=== PATIENT | male | born 1940 | race Caucasian/White ===

== ENCOUNTER → 2018-01-13 11:32 | Outpatient (CLI) | payer OTHER, SELFPAY ==
[2018-01-13 11:47] LABS: Add Manual Diff / Slide Review NO; Basophils Percent Auto 1.3 % (0-2); Eosinophils Percent Auto 2.7 % (2-4); Hematocrit 40.5 % (41-53); Lymphocytes Percent Auto 8.6 % (25-40); Mean Corpuscular HGB Conc 34.7 % (30-36); Mean Corpuscular Hemoglobin 31.9 PG (26-34); Monocytes Percent Auto 12.1 % (3-14); Neutrophils Absolute Auto 2900 /uL (3000-5900); Neutrophils Percent Auto 75.3 % (50-75); Platelet Count 59 X10^3/uL (150-400); Red Cell Distribution Width 13.8 % (11.6-14.8); White Blood Cell Count 3.9 X10^3/uL (4.5-11.0)
[2018-01-13 11:59] LABS: Alanine Aminotransferase 43 IU/L (21-72); Albumin 4.1 g/dL (3.5-5.0); Albumin Globulin Ratio 1.6 (1.0-2.8); Alkaline Phosphatase 77 U/L (38-126); Aspartate Aminotransferase 35 IU/L (17-59); Bilirubin Total 0.9 mg/dL (0.2-1.3); Blood Urea Nitrogen 27 mg/dL (9-20); Calcium 9.2 mg/dL (8.4-10.2); Carbon Dioxide 33 mmol/L (22-32); Chloride 99 mmol/L (98-107); Estimated Glomerular Filt Rate > 60.0 mL/min (>60); Globulin 2.6 g/dL (1.7-4.1); Glucose 101 mg/dL (80-110); HEMOLYSIS < 15 (0-50); Lactate Dehydrogenase 510 U/L (313-618); Potassium 4.2 mmol/L (3.4-5.1); Sodium 139 mmol/L (137-145); Total Protein 6.7 g/dL (6.3-8.2)
== END ==
PROVIDERS: PCP Internal Medicine; Visit Provider Nurse Practitioner Gerontology
DX: C82.90 Follicular lymphoma, unspecified, unspecified site (principal)
CPT/HCPCS: 36415; 80053; 83615; 85025

== ENCOUNTER → 2018-07-15 11:07 | Outpatient (CLI) | payer OTHER, SELFPAY ==
[2018-07-15 11:23] LABS: Add Manual Diff / Slide Review NO; Basophils Percent Auto 1.4 % (0-2); Eosinophils Percent Auto 4.6 % (2-4); Hematocrit 41.6 % (41-53); Hemoglobin 13.9 g/dL (13.5-17.5); Lymphocytes Percent Auto 7.3 % (25-40); Mean Corpuscular HGB Conc 33.3 % (30-36); Mean Corpuscular Hemoglobin 31.3 PG (26-34); Monocytes Percent Auto 12.2 % (3-14); Neutrophils Absolute Auto 3600 /uL (3000-5900); Neutrophils Percent Auto 74.5 % (50-75); Platelet Count 62 X10^3/uL (150-400); Red Blood Cell Count 4.43 X10^6/uL (4.5-5.9); Red Cell Distribution Width 13.3 % (11.6-14.8); White Blood Cell Count 4.8 X10^3/uL (4.5-11.0)
[2018-07-15 11:35] LABS: Alanine Aminotransferase 39 IU/L (21-72); Albumin Globulin Ratio 1.4 (1.0-2.8); Alkaline Phosphatase 72 U/L (38-126); Aspartate Aminotransferase 32 IU/L (17-59); BUN Creatinine Ratio 36.7 (6-22); Bilirubin Total 0.9 mg/dL (0.2-1.3); Blood Urea Nitrogen 33 mg/dL (9-20); Carbon Dioxide 31 mmol/L (22-32); Chloride 103 mmol/L (98-107); Estimated Glomerular Filt Rate > 60.0 mL/min (>60); Globulin 2.8 g/dL (1.7-4.1); Glucose 121 mg/dL (80-110); HEMOLYSIS < 15 (0-50); Lactate Dehydrogenase 554 U/L (313-618); Potassium 3.8 mmol/L (3.4-5.1); Sodium 144 mmol/L (137-145); Total Protein 6.8 g/dL (6.3-8.2)
== END ==
PROVIDERS: PCP Internal Medicine; Visit Provider Nurse Practitioner Gerontology
DX: C82.90 Follicular lymphoma, unspecified, unspecified site (principal)
CPT/HCPCS: 36415; 80053; 83615; 85025

== ENCOUNTER → 2018-10-03 14:29 | Outpatient (CLI) | payer OTHER, SELFPAY ==
--- NOTE | 2018-10-03 | DI.RAD.S_ITS ---
PROCEDURE: XR ABDOMEN 1V INDICATIONS: KIDNEY STONE TECHNIQUE: One view of the abdomen acquired. COMPARISON: [facility], CT, CHEST/ABD/PEL WITH CONTRAST, 10/12/2015, 10:52. [facility], CT, CHEST/ABD/PEL WITH CONTRAST, 12/24/2016, 10:51. [facility], CR, KUB XRAY (1 VIEW ABDOMEN), 01/28/2017, 14:13. [facility], CR, XR ABDOMEN 1 VIEW, 04/15/2018, 12:19. FINDINGS: Surgical changes and devices: Machado rods, dynamic hip screws at the left hip.. Bowel: Bowel gas pattern is free of evidence of intestinal obstruction or perforation but there is colonic obstipation with stool crossing in prominence over the expected region of the right kidney where prior lower third renal collecting system calculi had been documented by CT scanning 12/24/16. Soft tissues: No suspicious abdominal calcifications. Visualized solid organ contours appear normal in size. Left lateral pelvic sidewall phlebolith again noted. Bones: No suspicious bony lesions. IMPRESSION: No definite urinary tract stone found but as discussed above there is prominent stool overlying the right kidney exactly in the area of prior documented lower third renal collecting system calculi seen by CT scanning in December of 2016. Dictated by: Karthik Rivero M.D. on 10/03/2018 at 15:42 Approved by: Karthik Rivero M.D. on 10/03/2018 at 15:45
== END ==
PROVIDERS: PCP Internal Medicine; Visit Provider Urology
DX: N20.0 Calculus of kidney (principal); K59.00 Constipation, unspecified
CPT/HCPCS: 74018

== ENCOUNTER → 2018-12-26 13:17 | Outpatient (CLI) | payer OTHER, SELFPAY ==
[2018-12-26 14:32] LABS: Add Manual Diff / Slide Review NO; Basophils Absolute Auto 0 /uL (0-100); Basophils Percent Auto 1.1 % (0-2); Eosinophils Absolute Auto 100 /uL (0-450); Eosinophils Percent Auto 2.9 % (2-4); Hematocrit 39.6 % (41-53); Hemoglobin 13.6 g/dL (13.5-17.5); Lymphocytes Absolute Auto 400 /uL (1100-4500); Lymphocytes Percent Auto 8.6 % (25-40); Mean Corpuscular HGB Conc 34.5 % (30-36); Mean Corpuscular Hemoglobin 32.3 PG (26-34); Mean Corpuscular Volume 93.7 fL (80-100); Monocytes Absolute Auto 600 /uL (0-900); Monocytes Percent Auto 13.9 % (3-14); Neutrophils Absolute Auto 3300 /uL (1500-7000); Neutrophils Percent Auto 73.5 % (50-75); Platelet Count 67 X10^3/uL (150-400); Red Blood Cell Count 4.23 X10^6/uL (4.5-5.9); White Blood Cell Count 4.5 X10^3/uL (4.5-11.0)
[2018-12-26 14:42] LABS: BUN Creatinine Ratio 28.9 (6-22); Blood Urea Nitrogen 26 mg/dL (9-20); Estimated Glomerular Filt Rate > 60.0 mL/min (>60)
[2018-12-26 14:44] LABS: Alanine Aminotransferase 40 IU/L (21-72); Albumin 4.2 g/dL (3.5-5.0); Albumin Globulin Ratio 1.5 (1.0-2.8); Alkaline Phosphatase 79 U/L (38-126); Aspartate Aminotransferase 36 IU/L (17-59); BUN Creatinine Ratio 28.9 (6-22); Bilirubin Total 0.9 mg/dL (0.2-1.3); Blood Urea Nitrogen 26 mg/dL (9-20); Calcium 9.6 mg/dL (8.4-10.2); Carbon Dioxide 33 mmol/L (22-32); Chloride 99 mmol/L (98-107); Estimated Glomerular Filt Rate > 60.0 mL/min (>60); Globulin 2.8 g/dL (1.7-4.1); Glucose 98 mg/dL (80-110); HEMOLYSIS < 15 (0-50); Lactate Dehydrogenase 562 U/L (313-618); Potassium 4.5 mmol/L (3.4-5.1); Sodium 138 mmol/L (137-145)
== END ==
PROVIDERS: Internal Medicine Hematology & Oncology; PCP Internal Medicine; Visit Provider Internal Medicine
DX: M81.8 Other osteoporosis without current pathological fracture (principal); C82.90 Follicular lymphoma, unspecified, unspecified site
CPT/HCPCS: 36415; 80053; 82565; 83615; 84520; 85025

== ENCOUNTER → 2019-08-13 09:42 | Outpatient (CLI) | payer OTHER, SELFPAY ==
--- NOTE | 2019-08-13 | DI.RAD.S_ITS ---
PROCEDURE: XR ABDOMEN 1V INDICATIONS: renal calculus TECHNIQUE: One view of the abdomen acquired. COMPARISON: [facility], CR, XR ABDOMEN 1V, 10/03/2018, 14:32. FINDINGS: Surgical changes and devices: A coil is again seen to the left of L3 vertebral body. Fixation hardware in thoracic lumbar spine is seen. Post surgical changes also noted in left femoral neck and proximal shaft. Bowel: Fecal stasis throughout the colon is seen. No gross free air. Soft tissues: No suspicious abdominal calcifications. Multiple calcifications are seen in lower pelvis likely represent phleboliths. Visualized solid organ contours appear normal in size. Bones: No suspicious bony lesions. IMPRESSION: No definite renal stone is seen. No obvious ureteral stone is noted. Likely phleboliths in lower pelvis. Constipation. Dictated by: Candido Renteria M.D. on 08/13/2019 at 10:37 Approved by: Candido Renteria M.D. on 08/13/2019 at 10:38
== END ==
PROVIDERS: PCP Internal Medicine; Visit Provider Urology
DX: N20.0 Calculus of kidney (principal); K59.00 Constipation, unspecified
CPT/HCPCS: 74018

== ENCOUNTER → 2019-08-21 14:13 | Outpatient (CLI) | payer OTHER, SELFPAY | PROVIDERS: PCP Internal Medicine; Visit Provider Internal Medicine | DX: M81.0 Age-related osteoporosis without current pathological fracture (principal) | CPT/HCPCS: 77080 ==

== ENCOUNTER → 2019-10-19 12:01 | Outpatient (CLI) | payer OTHER, SELFPAY ==
[2019-10-19 12:28] LABS: Add Manual Diff / Slide Review NO; Basophils Absolute Auto 100 /uL (0-100); Basophils Percent Auto 1.5 % (0-2); Eosinophils Absolute Auto 200 /uL (0-450); Eosinophils Percent Auto 3.6 % (2-4); Hematocrit 40.1 % (41-53); Hemoglobin 13.7 g/dL (13.5-17.5); Lymphocytes Absolute Auto 500 /uL (1100-4500); Lymphocytes Percent Auto 10.6 % (25-40); Mean Corpuscular HGB Conc 34.1 % (30-36); Mean Corpuscular Hemoglobin 32.3 PG (26-34); Mean Corpuscular Volume 94.7 fL (80-100); Monocytes Absolute Auto 600 /uL (0-900); Monocytes Percent Auto 13.5 % (3-14); Neutrophils Absolute Auto 3400 /uL (1500-7000); Neutrophils Percent Auto 70.8 % (50-75); Platelet Count 53 X10^3/uL (150-400); Red Blood Cell Count 4.24 X10^6/uL (4.5-5.9); White Blood Cell Count 4.8 X10^3/uL (4.5-11.0)
[2019-10-19 12:39] LABS: Alanine Aminotransferase 25 IU/L (<50); Albumin Globulin Ratio 1.4 (1.0-2.8); Alkaline Phosphatase 72 U/L (38-126); Aspartate Aminotransferase 37 IU/L (17-59); Bilirubin Total 0.8 mg/dL (0.2-1.3); Blood Urea Nitrogen 27 mg/dL (9-20); Calcium 9.6 mg/dL (8.4-10.2); Carbon Dioxide 32 mmol/L (22-32); Chloride 102 mmol/L (98-107); Estimated Glomerular Filt Rate > 60.0 mL/min (>60); Globulin 2.9 g/dL (1.7-4.1); Glucose 85 mg/dL (80-110); HEMOLYSIS 20 (0-50); Lactate Dehydrogenase 633 U/L (313-618); Potassium 4.3 mmol/L (3.4-5.1); Sodium 139 mmol/L (137-145); Total Protein 6.9 g/dL (6.3-8.2)
== END ==
PROVIDERS: PCP Internal Medicine; Referring Provider Internal Medicine Hematology & Oncology; Visit Provider Internal Medicine Hematology & Oncology
DX: C82.90 Follicular lymphoma, unspecified, unspecified site (principal); D69.3 Immune thrombocytopenic purpura
CPT/HCPCS: 36415; 80053; 83615; 85025

== ENCOUNTER → 2020-04-04 14:12 | Outpatient (CLI) | payer OTHER, SELFPAY ==
--- NOTE | 2020-04-04 14:22 | DI.RAD.S_ITS ---
PROCEDURE: XR KUB INDICATIONS: kidney stones TECHNIQUE: One view of the abdomen acquired. COMPARISON: [facility], , KUB XRAY (1 VIEW ABDOMEN), 01/28/2017, 14:13. FINDINGS: Surgical changes and devices: Partially visualized spinal fixation hardware. Bowel: Bowel gas pattern is normal. Suboptimal evaluation due to diffuse stool. 6 mm calcification projects in the region of the right lower pole. Bones: No suspicious bony lesions. Spondylosis and facet arthropathy. Lateral curvature of the spine. IMPRESSION: 6 mm calcification projecting in the right abdomen, possibly nephrolithiasis. Suboptimal evaluation due to large amount of stool present Dictated by: Praneeth Villavicencio M.D. on 04/04/2020 at 16:55 Approved by: Praneeth Villavicencio M.D. on 04/04/2020 at 16:57
== END ==
PROVIDERS: PCP Internal Medicine; Referring Provider Specialist; Visit Provider Specialist
DX: N20.0 Calculus of kidney (principal)
CPT/HCPCS: 74018

== ENCOUNTER → 2020-06-14 15:40 | Outpatient (CLI) | payer OTHER, SELFPAY ==
--- NOTE | 2020-06-14 15:42 | DI.CT.S_ITS ---
PROCEDURE: CT KIDNEY URETER BLADDER (KUB) INDICATIONS: kidney stones TECHNIQUE: Noncontrast 5 mm thick sections acquired from the diaphragms to the symphysis. 5 mm thick coronal and sagittal reformats were then performed. For radiation dose reduction, the following was used: automated exposure control, adjustment of mA and/or kV according to patient size. COMPARISON: [facility], CT, CHEST/ABD/PEL WITH CONTRAST, 12/24/2016, 10:51. FINDINGS: Image quality: Excellent. Lung bases: Right basilar scarring is unchanged.. Heart size is normal. Coronary artery disease. Urinary system: Both kidneys are normal in size. There are 2 adjacent calculi within the right inferior pole kidney, measuring 4 mm each. No left nephrolithiasis. No hydronephrosis or perinephric fat stranding. Both ureters appear non-dilated throughout their expected courses. Bladder wall thickness is normal; no calcified bladder stones. Other solid organs: Liver is normal in size. Gallbladder is contracted . Pancreas is normal in contours. Spleen is normal in size. No adrenal nodules. Peritoneum and bowel: Unenhanced bowel loops demonstrate normal wall thickness and caliber. No free fluid or air. Nodes and vessels: No retroperitoneal or mesenteric adenopathy by size criteria. There is mild ectasia of the infrarenal abdominal aorta measuring 25 mm short axis. Abdominal wall: No ventral hernias. Pelvis: No free pelvic fluid. No inguinal hernias or adenopathy. Bones: No suspicious bony lesions. Left hip ORIF. No vertebral body compression fractures. IMPRESSION: 1. Nonobstructing right renal calculi. No evidence of left renal calculi. 2. No evidence of urinary tract obstruction. 3. Right basilar scarring. 4. Coronary artery disease. Dictated by: Tana Spencer M.D. on 06/14/2020 at 16:41 Approved by: Tana Spencer M.D. on 06/14/2020 at 16:44
[2020-06-14 17:26] LABS: Prostate Specific Antigen 6.06 ng/mL (0.10-4.00)
== END ==
PROVIDERS: PCP Internal Medicine; Referring Provider Specialist; Visit Provider Specialist
DX: N20.0 Calculus of kidney (principal); N40.1 Benign prostatic hyperplasia with lower urinary tract symptoms; N13.8 Other obstructive and reflux uropathy; J98.4 Other disorders of lung; I25.10 Atherosclerotic heart disease of native coronary artery without angina pectoris
CPT/HCPCS: 36415; 74176; 84153

== ENCOUNTER → 2020-07-25 15:46 | Outpatient (CLI) | payer OTHER, SELFPAY ==
[2020-07-25 17:22] LABS: Chloride 100 mmol/L (98-107); HEMOLYSIS < 15 (0-50)
[2020-07-25 17:23] LABS: Alanine Aminotransferase 24 IU/L (<50); Albumin 3.8 g/dL (3.5-5.0); Albumin Globulin Ratio 1.2 (1.0-2.8); Alkaline Phosphatase 78 U/L (38-126); Aspartate Aminotransferase 36 IU/L (17-59); BUN Creatinine Ratio 28.8 (6-22); Bilirubin Total 0.8 mg/dL (0.2-1.3); Blood Urea Nitrogen 30 mg/dL (9-20); Calcium 9.2 mg/dL (8.4-10.2); Carbon Dioxide 36 mmol/L (22-32); Estimated Glomerular Filt Rate > 60.0 mL/min (>60); Globulin 3.1 g/dL (1.7-4.1); Glucose 79 mg/dL (80-110); Potassium 3.9 mmol/L (3.4-5.1); Sodium 137 mmol/L (137-145); Total Protein 6.9 g/dL (6.3-8.2)
== END ==
PROVIDERS: PCP Internal Medicine; Referring Provider Specialist; Visit Provider Specialist
DX: R82.992 Hyperoxaluria (principal); R82.994 Hypercalciuria
CPT/HCPCS: 36415; 80053

== ENCOUNTER → 2020-11-02 15:41 | Outpatient (CLI) | payer OTHER, SELFPAY ==
[2020-11-02 16:06] LABS: Add Manual Diff / Slide Review NO; Basophils Absolute Auto 100 /uL (0-100); Basophils Percent Auto 1.5 % (0-2); Eosinophils Absolute Auto 200 /uL (0-450); Eosinophils Percent Auto 4.7 % (2-4); Hematocrit 34.8 % (41-53); Lymphocytes Absolute Auto 400 /uL (1100-4500); Lymphocytes Percent Auto 8.7 % (25-40); Mean Corpuscular HGB Conc 34.5 % (30-36); Mean Corpuscular Hemoglobin 31.8 PG (26-34); Mean Corpuscular Volume 92.1 fL (80-100); Monocytes Absolute Auto 600 /uL (0-900); Neutrophils Absolute Auto 3600 /uL (1500-7000); Neutrophils Percent Auto 73.1 % (50-75); Platelet Count 61 X10^3/uL (150-400); Red Blood Cell Count 3.77 X10^6/uL (4.5-5.9); Red Cell Distribution Width 13.9 % (11.6-14.8); White Blood Cell Count 4.9 X10^3/uL (4.5-11.0)
[2020-11-02 16:09] LABS: Alanine Aminotransferase 22 IU/L (<50); Albumin 3.9 g/dL (3.5-5.0); Albumin Globulin Ratio 1.5 (1.0-2.8); Alkaline Phosphatase 87 U/L (38-126); Aspartate Aminotransferase 33 IU/L (17-59); BUN Creatinine Ratio 35.1 (6-22); Bilirubin Total 0.4 mg/dL (0.2-1.3); Blood Urea Nitrogen 34 mg/dL (9-20); Calcium 9.2 mg/dL (8.4-10.2); Carbon Dioxide 31 mmol/L (22-32); Chloride 101 mmol/L (98-107); Estimated Glomerular Filt Rate > 60.0 mL/min (>60); Globulin 2.6 g/dL (1.7-4.1); Glucose 89 mg/dL (80-110); HEMOLYSIS < 15 (0-50); Potassium 4.1 mmol/L (3.4-5.1); Sodium 138 mmol/L (137-145); Total Protein 6.5 g/dL (6.3-8.2)
== END ==
PROVIDERS: PCP Internal Medicine; Referring Provider Internal Medicine Hematology & Oncology; Visit Provider Internal Medicine Hematology & Oncology
DX: C82.90 Follicular lymphoma, unspecified, unspecified site (principal); D69.3 Immune thrombocytopenic purpura
CPT/HCPCS: 36415; 80053; 85025

== ENCOUNTER → 2020-11-29 16:10 | Outpatient (CLI) | payer OTHER, SELFPAY ==
--- NOTE | 2020-11-29 16:13 | DI.RAD.S_ITS ---
PROCEDURE: XR KUB INDICATIONS: Kidney stone TECHNIQUE: One view of the abdomen acquired. COMPARISON: [facility], CT, CT KIDNEY URETER BLADDER (KUB), 06/14/2020, 15:49. [facility], CR, XR KUB, 04/04/2020, 14:12. FINDINGS: Surgical changes and devices: None. Bowel: Presumed embolization coil projected over the left flank at the level of L2. Thoracic spine fixation rods and screws incompletely visualized. Postsurgical changes of the left hip also incompletely visualized. Soft tissues: 4 mm and 9 mm calcifications again seen projected over the mid pole of the right kidney.. Visualized solid organ contours appear normal in size. Bones: No suspicious bony lesions. IMPRESSION: 2 calcifications projected over the right kidney, largest measuring 9 mm. Dictated by: Dieudonne MARIE Interpreted: Praneeth Villavicencio MD on 11/29/2020 at 16:37 Approved by: Praneeth Villavicencio M.D. on 11/29/2020 at 17:07
[2020-11-29 18:05] LABS: Prostate Specific Antigen 4.96 ng/mL (0.10-4.00)
== END ==
PROVIDERS: PCP Internal Medicine; Referring Provider Specialist; Visit Provider Specialist
DX: N40.1 Benign prostatic hyperplasia with lower urinary tract symptoms (principal); N20.0 Calculus of kidney; N13.8 Other obstructive and reflux uropathy
CPT/HCPCS: 36415; 74018; 84153

== ENCOUNTER → 2021-01-05 13:06 | Outpatient (CLI) | payer OTHER, SELFPAY ==
--- NOTE | 2021-01-05 13:09 | DI.CT.S_ITS ---
PROCEDURE: CT CHEST WO CON INDICATIONS: Nonrheumatic mitral (valve) insufficiency TECHNIQUE: Noncontrast 5 mm thick sections acquired from the pulmonary apices to the posterior costophrenic angles. 1 mm lung window, 5 mm thick coronal and sagittal and 7 mm axial MIP reformats were then acquired. For radiation dose reduction, the following was used: automated exposure control, adjustment of mA and/or kV according to patient size. COMPARISON: [facility], CT, THORAX WITH CONTRAST, 09/26/2016, 10:30. [facility], CT, CHEST/ABD/PEL WITH CONTRAST, 07/04/2016, 9:42. [facility], CT, CHEST/ABD/PEL WITH CONTRAST, 12/24/2016, 10:51. [facility], CT, CT KIDNEY URETER BLADDER (KUB), 06/14/2020, 15:49. FINDINGS: Image quality: Excellent. Lungs and pleura: No acute air space opacities. No pleural effusions or pneumothorax. Central and peripheral airways are patent and normal in caliber. Mediastinum: Heart size is normal. No pericardial effusion. No mediastinal adenopathy by size criteria. Thoracic aorta and central pulmonary arteries are normal in size. Esophagus is normal in caliber. No hiatal hernia. Bones and chest wall: No suspicious bony lesions. There is convex rightward scoliosis, and bilateral Machado rods are again noted along the thoracic spine extending into the upper lumbar level. No sign of abnormal subluxation. No vertebral body compression fractures. No axillary or supraclavicular adenopathy by size criteria. Thyroid gland is not well seen . Abdomen: Visualized upper abdominal solid organs and bowel loops appear normal in the absence of contrast. IMPRESSION: No acute disease found. No adenopathy seen. The chest is distorted by significant convex rightward scoliosis previously treated with spine stabilization by Machado rods. No sign of device loosening or disruption. No acute disease. Reported prior lymphoma -no adenopathy found. Dictated by: Karthik Rivero M.D. on 01/05/2021 at 15:35 Approved by: Karthik Rivero M.D. on 01/05/2021 at 15:39
== END ==
PROVIDERS: PCP Internal Medicine; Referring Provider Surgery; Visit Provider Surgery
DX: I34.0 Nonrheumatic mitral (valve) insufficiency (principal); M41.84 Other forms of scoliosis, thoracic region
CPT/HCPCS: 71250

== ENCOUNTER → 2021-05-30 16:20 | Outpatient (CLI) | payer OTHER, SELFPAY ==
--- NOTE | 2021-05-30 16:23 | DI.RAD.S_ITS ---
PROCEDURE: XR KUB INDICATIONS: Kidney stones TECHNIQUE: One view of the abdomen acquired. COMPARISON: [facility], CR, XR KUB, 11/29/2020, 16:12. FINDINGS: Surgical changes and devices: None. Bowel: Bowel gas pattern is normal. There is a large amount of stool in colon. Soft tissues: Possible right inferior pole renal stones, which are partially obscured by stool in colon. Multiple calcific densities in the pelvis are most likely phleboliths. Visualized solid organ contours appear normal in size. Bones: No suspicious bony lesions. Scoliosis and severe degenerative changes in lumbar spine. Postsurgical changes in the lower thoracic spine. Old left femoral neck fracture with internal fixation. IMPRESSION: Suspect right inferior pole renal stones. Dictated by: Xin Rowland M.D. on 05/30/2021 at 16:51 Approved by: Xin Rowland M.D. on 05/30/2021 at 16:54
== END ==
PROVIDERS: PCP Internal Medicine; Referring Provider Specialist; Visit Provider Specialist
DX: N20.0 Calculus of kidney (principal)
CPT/HCPCS: 74018

== ENCOUNTER → 2021-06-08 15:54 | Outpatient (CLI) | payer OTHER, SELFPAY ==
--- NOTE | 2021-06-08 16:28 | DI.RAD.S_ITS ---
PROCEDURE: XR CHEST 2V INDICATIONS: SOB TECHNIQUE: 2 views of the chest were acquired. COMPARISON: [facility], CT, CT CHEST WO CON, 01/05/2021, 13:41. [facility], CR, CHEST 2 VIEW, 09/13/2015, 14:26. FINDINGS: Surgical changes and devices: Thoracolumbar fixation rods are present with scoliotic curvature. Sternal wires are present. Lungs and pleura: No consolidations. Streaky bibasilar opacities. No pleural effusions or pneumothorax. Mediastinum: Mediastinal contours are normal. Heart size is normal. Bones and chest wall: No suspicious bony abnormalities. Soft tissues appear unremarkable. IMPRESSION: Streaky bibasilar opacities suggestive atelectasis versus dependent edema. Less likely consideration would be developing pneumonia. Dictated by: Aniya Abernathy M.D. on 06/08/2021 at 16:46 Approved by: Aniya Abernathy M.D. on 06/08/2021 at 16:50
[2021-06-08 17:48] LABS: BUN Creatinine Ratio 21.3 (6-22); Blood Urea Nitrogen 23 mg/dL (9-20); Carbon Dioxide 34 mmol/L (22-32); Chloride 101 mmol/L (98-107); Estimated Glomerular Filt Rate > 60.0 mL/min (>60); Glucose 89 mg/dL (80-110); HEMOLYSIS < 15 (0-50); Magnesium 2.4 mg/dL (1.6-2.3); Potassium 4.5 mmol/L (3.4-5.1); Sodium 140 mmol/L (137-145)
[2021-06-08 17:53] LABS: NT-proBNP (BNP-Adult 18+) 2180 pg/mL (<450)
== END ==
PROVIDERS: PCP Internal Medicine; Referring Provider Internal Medicine Cardiovascular Disease; Visit Provider Internal Medicine Cardiovascular Disease
DX: R06.02 Shortness of breath (principal); Z79.899 Other long term (current) drug therapy; Z71.2 Person consulting for explanation of examination or test findings; I48.0 Paroxysmal atrial fibrillation
CPT/HCPCS: 36415; 71046; 80048; 83735; 83880

== ENCOUNTER → 2021-06-21 16:20 | Outpatient (CLI) | payer OTHER, SELFPAY ==
[2021-06-21 18:03] LABS: BUN Creatinine Ratio 30.9 (6-22); Blood Urea Nitrogen 29 mg/dL (9-20); Calcium 8.9 mg/dL (8.4-10.2); Carbon Dioxide 32 mmol/L (22-32); Chloride 100 mmol/L (98-107); Estimated Glomerular Filt Rate > 60.0 mL/min (>60); Glucose 95 mg/dL (80-110); HEMOLYSIS < 15 (0-50); Magnesium 2.2 mg/dL (1.6-2.3); Sodium 138 mmol/L (137-145)
== END ==
PROVIDERS: PCP Internal Medicine; Referring Provider Internal Medicine Cardiovascular Disease; Visit Provider Internal Medicine Cardiovascular Disease
DX: R06.02 Shortness of breath (principal); Z79.899 Other long term (current) drug therapy; Z71.2 Person consulting for explanation of examination or test findings; I48.0 Paroxysmal atrial fibrillation
CPT/HCPCS: 36415; 80048; 83735

== ENCOUNTER → 2021-07-27 16:53 | Outpatient (CLI) | payer OTHER, SELFPAY ==
[2021-07-27 20:48] LABS: BUN Creatinine Ratio 25.4 (6-22); Blood Urea Nitrogen 29 mg/dL (9-20); Calcium 9.3 mg/dL (8.4-10.2); Carbon Dioxide 37 mmol/L (22-32); Chloride 101 mmol/L (98-107); Estimated Glomerular Filt Rate > 60.0 mL/min (>60); Glucose 125 mg/dL (80-110); HEMOLYSIS < 15 (0-50); Potassium 3.9 mmol/L (3.4-5.1); Sodium 141 mmol/L (137-145)
== END ==
PROVIDERS: PCP Internal Medicine; Referring Provider Internal Medicine Cardiovascular Disease; Visit Provider Internal Medicine Cardiovascular Disease
DX: I42.9 Cardiomyopathy, unspecified (principal)
CPT/HCPCS: 36415; 80048

== ENCOUNTER → 2021-11-10 15:55 | Outpatient (CLI) | payer OTHER, SELFPAY ==
[2021-11-10 17:42] LABS: BUN Creatinine Ratio 31.5 (6-22); Blood Urea Nitrogen 28 mg/dL (9-20); Calcium 8.8 mg/dL (8.4-10.2); Carbon Dioxide 32 mmol/L (22-32); Chloride 101 mmol/L (98-107); Estimated Glomerular Filt Rate > 60.0 mL/min (>60); Glucose 87 mg/dL (80-110); HEMOLYSIS < 15 (0-50); Potassium 4.4 mmol/L (3.4-5.1); Sodium 140 mmol/L (137-145)
== END ==
PROVIDERS: PCP Internal Medicine; Referring Provider Internal Medicine Cardiovascular Disease; Visit Provider Internal Medicine Cardiovascular Disease
DX: I50.42 Chronic combined systolic (congestive) and diastolic (congestive) heart failure (principal)
CPT/HCPCS: 36415; 80048

== ENCOUNTER → 2022-04-11 08:37 | Outpatient (CLI) | payer OTHER, SELFPAY ==
[2022-04-11 11:22] LABS: Cholesterol 118 mg/dL (140-199); HDL Cholesterol 44 mg/dL (40-60); LDL Cholesterol Calculated 62 mg/dL (<100); Triglycerides 58 mg/dL (35-150)
== END ==
PROVIDERS: PCP Internal Medicine; Referring Provider Nurse Practitioner; Visit Provider Nurse Practitioner
DX: E78.5 Hyperlipidemia, unspecified (principal); Z95.1 Presence of aortocoronary bypass graft
CPT/HCPCS: 36415; 80061

== ENCOUNTER → 2022-07-09 14:04 | Outpatient (CLI) | payer OTHER, SELFPAY | PROVIDERS: PCP Internal Medicine; Referring Provider Internal Medicine; Visit Provider Internal Medicine | DX: M81.0 Age-related osteoporosis without current pathological fracture (principal); Z79.83 Long term (current) use of bisphosphonates | CPT/HCPCS: 36415; 77080; 80053 ==

== ENCOUNTER → 2022-07-09 14:44 | Outpatient (CLI) | payer OTHER, SELFPAY ==
[2022-07-09 16:13] LABS: Alanine Aminotransferase 22 IU/L (<50); Albumin 3.8 g/dL (3.5-5.0); Albumin Globulin Ratio 1.4 (1.0-2.8); Alkaline Phosphatase 93 U/L (38-126); Aspartate Aminotransferase 32 IU/L (17-59); BUN Creatinine Ratio 29.1 (6-22); Bilirubin Total 0.9 mg/dL (0.2-1.3); Blood Urea Nitrogen 30 mg/dL (9-20); Calcium 8.9 mg/dL (8.4-10.2); Carbon Dioxide 31 mmol/L (22-32); Chloride 102 mmol/L (98-107); Estimated Glomerular Filt Rate > 60 mL/min (>60); Globulin 2.7 g/dL (1.7-4.1); Glucose 95 mg/dL (80-110); HEMOLYSIS < 15 (0-50); Potassium 4.3 mmol/L (3.4-5.1); Sodium 139 mmol/L (137-145); Total Protein 6.5 g/dL (6.3-8.2)
== END ==
PROVIDERS: PCP Internal Medicine; Referring Provider Internal Medicine; Visit Provider Internal Medicine
DX: M81.0 Age-related osteoporosis without current pathological fracture (principal)
CPT/HCPCS: 36415; 80053

== ENCOUNTER → 2022-08-17 16:25 | Outpatient (CLI) | payer OTHER, SELFPAY ==
--- NOTE | 2022-08-17 | DI.US.S_ITS ---
PROCEDURE: US PERIPH VENOUS LOW EXTREM LT INDICATIONS: ACUTE VENOUS CHANGES WITH SWELLING - R/O DVT TECHNIQUE: Real-time imaging, as well as color and pulse Doppler interrogation, were performed of the lower extremity deep veins from the inguinal ligament to the popliteal fossa. COMPARISON: None. FINDINGS: The common femoral, femoral and popliteal veins are normally compressible, and free of intraluminal thrombus. Color and pulse Doppler demonstrate normal phasic intraluminal flow. There is normal augmentation response to distal compression maneuver. IMPRESSION: No deep venous thrombosis. Dictated by: John Bradley M.D. on 08/17/2022 at 17:41 Approved by: John Bradley M.D. on 08/17/2022 at 17:42
== END ==
PROVIDERS: PCP Internal Medicine; Referring Provider Nurse Practitioner Family; Visit Provider Nurse Practitioner Family
DX: I80.8 Phlebitis and thrombophlebitis of other sites (principal); D69.3 Immune thrombocytopenic purpura
CPT/HCPCS: 93971

== ENCOUNTER → 2022-08-20 11:17 | Outpatient (CLI) | payer OTHER, SELFPAY ==
[2022-08-20 12:05] LABS: Add Manual Diff / Slide Review NO; Basophils Absolute Auto 100 /uL (0-100); Basophils Percent Auto 0.7 % (0-2); Eosinophils Absolute Auto 400 /uL (0-450); Eosinophils Percent Auto 5.2 % (2-4); Hematocrit 37.8 % (41-53); Hemoglobin 12.7 g/dL (13.5-17.5); Lymphocytes Absolute Auto 500 /uL (1100-4500); Lymphocytes Percent Auto 6.4 % (25-40); Mean Corpuscular HGB Conc 33.6 % (30-36); Mean Corpuscular Hemoglobin 31.1 PG (26-34); Mean Corpuscular Volume 92.8 fL (80-100); Monocytes Absolute Auto 700 /uL (0-900); Monocytes Percent Auto 9.7 % (3-14); Neutrophils Absolute Auto 5600 /uL (1500-7000); Platelet Count 63 X10^3/uL (150-400); Red Blood Cell Count 4.08 X10^6/uL (4.5-5.9); Red Cell Distribution Width 14.1 % (11.6-14.8); White Blood Cell Count 7.2 X10^3/uL (4.5-11.0)
== END ==
PROVIDERS: PCP Internal Medicine; Referring Provider Nurse Practitioner Family; Visit Provider Nurse Practitioner Family
DX: D69.3 Immune thrombocytopenic purpura (principal); C82.90 Follicular lymphoma, unspecified, unspecified site
CPT/HCPCS: 36415; 82232; 85025

== ENCOUNTER → 2022-08-29 14:50 | Outpatient (CLI) | payer OTHER, SELFPAY ==
[2022-08-31 16:30] LABS: Beta-2-Microglobulin 2.7 mg/L (0.6-2.4)
== END ==
PROVIDERS: PCP Internal Medicine; Referring Provider Nurse Practitioner Family; Visit Provider Nurse Practitioner Family
DX: D69.3 Immune thrombocytopenic purpura (principal)
CPT/HCPCS: 82232

== ENCOUNTER → 2023-03-08 14:52 | Outpatient (CLI) | payer OTHER, SELFPAY ==
[2023-03-08 15:45] LABS: Alanine Aminotransferase 21 IU/L (<50); Albumin 3.7 g/dL (3.5-5.0); Albumin Globulin Ratio 1.4 (1.0-2.8); Alkaline Phosphatase 90 U/L (38-126); Aspartate Aminotransferase 34 IU/L (17-59); Blood Urea Nitrogen 31 mg/dL (9-20); Calcium 8.8 mg/dL (8.4-10.2); Carbon Dioxide 32 mmol/L (22-32); Chloride 100 mmol/L (98-107); Estimated Glomerular Filt Rate > 60 mL/min (>60); Globulin 2.6 g/dL (1.7-4.1); Glucose 92 mg/dL (80-110); HEMOLYSIS < 15 (0-50); Potassium 4.3 mmol/L (3.4-5.1); Sodium 136 mmol/L (137-145); Total Protein 6.3 g/dL (6.3-8.2)
== END ==
PROVIDERS: PCP Internal Medicine; Referring Provider Internal Medicine Cardiovascular Disease; Visit Provider Internal Medicine Cardiovascular Disease
DX: I25.5 Ischemic cardiomyopathy (principal); I95.2 Hypotension due to drugs
CPT/HCPCS: 36415; 80053

== ENCOUNTER → 2023-06-12 09:38 | Outpatient (CLI) | payer OTHER, SELFPAY ==
[2023-06-12 10:57] LABS: Alanine Aminotransferase 19 IU/L (<50); Albumin 3.8 g/dL (3.5-5.0); Albumin Globulin Ratio 1.4 (1.0-2.8); Alkaline Phosphatase 96 U/L (38-126); Aspartate Aminotransferase 32 IU/L (17-59); BUN Creatinine Ratio 35.5 (6-22); Bilirubin Total 0.8 mg/dL (0.2-1.3); Blood Urea Nitrogen 33 mg/dL (9-20); Calcium 9.2 mg/dL (8.4-10.2); Carbon Dioxide 31 mmol/L (22-32); Chloride 102 mmol/L (98-107); Cholesterol 114 mg/dL (140-199); Estimated Glomerular Filt Rate > 60 mL/min (>60); Globulin 2.7 g/dL (1.7-4.1); Glucose 88 mg/dL (80-110); HDL Cholesterol 37 mg/dL (40-60); HEMOLYSIS < 15 (0-50); LDL Cholesterol Calculated 62 mg/dL (<100); Potassium 4.4 mmol/L (3.4-5.1); Sodium 137 mmol/L (137-145); Total Protein 6.5 g/dL (6.3-8.2); Triglycerides 75 mg/dL (35-150)
== END ==
PROVIDERS: PCP Internal Medicine; Referring Provider Internal Medicine; Visit Provider Internal Medicine
DX: E78.2 Mixed hyperlipidemia (principal); M81.0 Age-related osteoporosis without current pathological fracture
CPT/HCPCS: 36415; 80053; 80061; 82306

== ENCOUNTER → 2023-09-04 16:45 | Outpatient (CLI) | payer OTHER, SELFPAY ==
--- NOTE | 2023-09-04 | DI.RAD.S_ITS ---
PROCEDURE: XR CHEST 2V INDICATIONS: COUGH TECHNIQUE: 2 views of the chest were acquired. COMPARISON: [facility], CR, XR CHEST 2V, 06/08/2021, 16:22. FINDINGS: Surgical changes and devices: Machado rods are redemonstrated and appear unchanged from the study dated June 08, 2021. Patient is status post median sternotomy. Lungs and pleura: Lungs are clear. No pleural effusions or pneumothorax. Mediastinum: Mediastinal contours are normal. Heart size is normal. Bones and chest wall: No suspicious bony abnormalities. Soft tissues appear unremarkable. IMPRESSION: No acute cardiopulmonary abnormality is seen. Dictated by: Gladys Monroy M.D. on 09/05/2023 at 14:53 Approved by: Gladys Monroy M.D. on 09/05/2023 at 14:55
== END ==
PROVIDERS: PCP Internal Medicine; Referring Provider Physician Assistant; Visit Provider Physician Assistant
DX: R05.9 Cough, unspecified (principal)
CPT/HCPCS: 71046

== ENCOUNTER 2024-04-20 15:39 | Emergency (ER) | payer OTHER, SELFPAY ==
[2024-04-20] VITALS (8 sets, daily range): BP systolic 153–169; BP diastolic 77–80; PULSE 57–61; RESP 16–24; TEMP 36.2; O2SAT 92–96; BMI 21.9
--- NOTE | 2024-04-20 16:17 | ED.HEATRA ---
HPI - Head Injury General Chief complaint: Head Injury Stated complaint: Fall, hit head, no blood thinners sent by PCP Time Seen by Provider: 04/20/24 16:12 Source: patient Mode of arrival: Ambulatory History of Present Illness HPI Narrative: Patient is an 83-year-old male who has a history of scoliosis. Because of this he has quite a bit of balance issues. He states that on Saturday of last week he had a fall where he was getting up to step on a spider that was crawling across his living room floor. He states he lost his balance fell backwards and hit his head. No loss of consciousness but has had some blurry vision since the time. He did not come in to be evaluated. He went to go see his eye doctor this morning. Had a dilated exam and was told that the vessels in his right eye were ?congested? was sent to the emergency department. He also had an appointment with his primary doctor this morning. He has been having shortness of breath over the past several days/weeks. No fevers. No chest pain. No weight gain. No lower extremity swelling. No history of heart failure. A head CT and chest x-ray and labs were ordered by his primary doctor. Related Data Home Medications Medication Instructions Recorded Confirmed latanoprost 0.005 % eye drops 2 drp ophthalmic (eye) DAILY 01/15/19 12/11/21 calcium citrate 250 mg PO DAILY 10/26/19 12/11/21 aspirin 81 mg tablet,delayed 81 mg PO DAILY 06/06/21 12/11/21 release cholecalciferol (vitamin D3) 25 2,000 unit PO DAILY 06/06/21 12/11/21 mcg (1,000 unit) capsule (Vitamin D3) multivitamin 1 tab PO DAILY 06/06/21 12/11/21 polyethylene glycol 3350 17 gram 17 g PO DAILY PRN Constipation 06/06/21 12/11/21 oral powder packet (Miralax) zoledronic acid 5 mg/100 mL in IV ONCE 06/06/21 06/06/21 mannitol 5 %-water intravenous piggybck (Reclast) carvedilol 12.5 mg tablet (Coreg) 12.5 mg PO BID 12/11/21 12/11/21 losartan 25 mg tablet 25 mg PO DAILY 12/11/21 12/11/21 rosuvastatin 5 mg tablet 5 mg PO DAILY 12/11/21 12/11/21 Previous Rx's Medication Instructions Recorded tamsulosin 0.4 mg capsule See Rx Instructions .Route 06/15/22 .COMPLEX #30 caps Allergies Allergy/AdvReac Type Severity Reaction Status Date / Time lactose [LACTOSE] Allergy Unknown Verified 06/06/21 14:10 latex [LATEX] Allergy Unknown Verified 06/06/21 14:10 lisinopril [LISINOPRIL] Allergy Unknown DIARRHEA Verified 06/06/21 14:10 TAPE Allergy Unknown Uncoded 06/06/21 14:10 Review of Systems Review of Systems Narrative: See HPI Patient History Medical History BPH w urinary obs/LUTS Elevated PSA History of nephrolithiasis Hypertension Kidney stone Lymphoma Nephrolithiasis Nocturia Right nephrolithiasis Valvular heart disease Surgical History H/O hernia repair Hx of vasectomy Previous back surgery Social History Smoking Status: Never smoker Smoking Status: Never smoker Substance Use Type: does not use Exam Initial Vital Signs Initial Vital Signs: Vital Signs Temperature 97.2 F L 04/20/24 15:41 Pulse Rate 61 04/20/24 15:41 Respiratory Rate 16 04/20/24 15:41 Blood Pressure 153/80 H 04/20/24 15:41 Pulse Oximetry 96 04/20/24 15:41 Oxygen Delivery Method Room Air 04/20/24 15:41 Const General: cooperative, comfortable and No ill appearing [facility] Head: normal to inspection and normocephalic Eyes Other: Dilated pupils Resp Effort & Inspection: normal respiratory effort Auscultation: clear to auscultation bilaterally Cardio Rate: regular rate Rhythm: regular rhythm Skin General: no rashes or lesions noted Neuro General: patient alert, patient awake, patient oriented x3 and moves all extremities Extrem General: No edema Course Orders Ordered: ED Orders 04/20/24 16:18 CT head/brain wo con Stat XR chest 1V Stat EKG-12 Lead Stat 04/20/24 16:49 BNP [NT-proBNP (BNP-Adult 18+)] Stat Complete Blood Count AUTO DIFF Stat Comprehensive Metabolic Panel Stat Lipase Stat Troponin & CK Cardiac Panel Stat Vital Signs Vital signs: Vital Signs - 8 hr 04/20/24 15:41 Temperature 97.2 F L Pulse Rate 61 Respiratory Rate 16 Blood Pressure 153/80 H Pulse Oximetry 96 Oxygen Delivery Method Room Air MDM - Head Injury Lab Data Attestation: I reviewed the patient's lab results. 04/20/24 16:49 04/20/24 16:49 Labs: Lab Results 04/20/24 Range/Units 16:49 WBC 6.4 (4.5-11.0) X10^3/uL RBC 3.76 L (4.5-5.9) X10^6/uL Hgb 12.0 L (13.5-17.5) g/dL Hct 35.2 L (41-53) % MCV 93.6 (80-100) fL MCH 31.9 (26-34) PG MCHC 34.1 (30-36) % RDW 15.2 H (11.6-14.8) % Plt Count 43 L (150-400) X10^3/uL Neut % (Auto) 69.4 (50-75) % Lymph % (Auto) 8.3 L (25-40) % Falls % (Auto) 10.8 (3-14) % Eos % (Auto) 10.7 H (2-4) % Baso % (Auto) 0.8 (0-2) % Neut # (Auto) 4500 (9589-4901) /uL Lymph # (Auto) 500 L (7879-1506) /uL Falls # (Auto) 700 (0-900) /uL Eos # (Auto) 700 H (0-450) /uL Baso # (Auto) 100 (0-100) /uL Sodium 133 L (137-145) mmol/L Potassium 4.1 (3.4-5.1) mmol/L Chloride 99 (98-107) mmol/L Carbon Dioxide 30 (22-32) mmol/L BUN 22 H (9-20) mg/dL Creatinine 0.84 (0.66-1.25) mg/dL Estimated GFR > 60 (>60) mL/min BUN/Creatinine Ratio 26.2 H (6-22) Glucose 84 (80-110) mg/dL Calcium 8.9 (8.4-10.2) mg/dL Total Bilirubin 1.2 (0.2-1.3) mg/dL AST 33 (17-59) IU/L ALT 17 (<50) IU/L Alkaline Phosphatase 70 (38-126) U/L Total Creatine Kinase 58 (55-170) U/L Troponin I < 0.012 (0.01-0.034) ng/mL NT-Pro-B Natriuret Pep 2040 H (<450) pg/mL Total Protein 6.4 (6.3-8.2) g/dL Albumin 3.5 (3.5-5.0) g/dL Globulin 2.9 (1.7-4.1) g/dL Albumin/Globulin Ratio 1.2 (1.0-2.8) Lipase 22 L (23-300) U/L Imaging Data CT scan - head: Radiologist's Impression: PROCEDURE: CT HEAD/BRAIN WO CON INDICATIONS: Fall with head injury and vision changes TECHNIQUE: Noncontrast 4.5 mm thick angled axial sections acquired from the foramen magnum to the vertex, with coronal and sagittal reformats. For radiation dose reduction, the following was used: automated exposure control, adjustment of mA and/or kV according to patient size. COMPARISON: None. FINDINGS: Image quality: Diagnostic. CSF spaces: Basal cisterns are patent. No extra-axial fluid collections. The ventricles are symmetric in size and shape. Brain: No intracranial bleeds or masses. There is cerebral volume loss for age, with resultant ventricular and sulcal prominence. There are periventricular and deep white matter chronic small vessel ischemic changes. There is intracranial internal carotid artery atherosclerosis. Skull and face: Calvarium and visualized facial bones appear intact, without suspicious lesions. Sinuses: Visualized sinuses demonstrate complete opacification of the right maxillary sinus. IMPRESSION: 1. No acute intracranial process. 2. Moderate atrophy and chronic microvascular ischemic changes. Chest x-ray: Radiologist's Impression: PROCEDURE: XR CHEST 1V INDICATIONS: Shortness of breath TECHNIQUE: One view of the chest was acquired. COMPARISON: [facility], , XR CHEST 2V, 09/04/2023, 17:00. FINDINGS: Surgical changes and devices: Fixation rods are again seen in thoracic and upper lumbar spine. Median sternotomy wires and surgical clips are again noted. Lungs and pleura: There is mild pulmonary vascular congestion. No definite focal infiltrate, pleural effusion or pneumothorax. Mediastinum: Tortuous thoracic aorta is seen. Heart size is enlarged. Bones and chest wall: No suspicious bony lesions. Overlying soft tissues appear unremarkable. IMPRESSION: Finding is concerning for CHF. No definite focal infiltrate. No significant pleural effusion or pneumothorax. [facility] Narrative Medical decision making narrative: This was a mechanical fall where he just lost his balance. His head CT is unremarkable. Chest x-ray shows pulmonary edema and his BNP is elevated but this is baseline from a prior BNP several years ago. His lungs are clear. Not hypoxic. Has not had any weight gain. No lower extremity swelling. He was not on diuretics. Advised that he contact his primary doctor for a follow-up to discuss potentially starting on diuretics. He was given return precautions. He expressed understanding and agreement. Discharge Plan Departure Patient Disposition: Home Clinical Impression: Closed head injury Instructions: DI for Closed Head Injury Activity Restrictions/Additional Instructions: Continue to take all of your medications as directed. Recommend that you contact your primary doctor for follow-up to discuss the labs and the x-rays from today. Return to the emergency department for new symptoms. Prescriptions: No Action tamsulosin 0.4 mg capsule See Rx Instructions .ROUTE .COMPLEX Qty: 30 0RF Dose Instruction: Take 1 capsule (0.4 mg) by mouth at bedtime Rx Instructions: Future refills to PCP latanoprost 0.005 % Drops 2 drp ophthalmic (eye) DAILY calcium citrate 250 mg calcium Tablet 250 mg PO DAILY cholecalciferol (vitamin D3) [Vitamin D3] 25 mcg (1,000 unit) capsule 2,000 unit PO DAILY carvedilol [Coreg] 12.5 mg Tablet 12.5 mg PO BID Rx Instructions: must administer with a meal/food losartan 25 mg Tablet 25 mg PO DAILY rosuvastatin 5 mg Tablet 5 mg PO DAILY multivitamin Tablet 1 tab PO DAILY aspirin 81 mg tablet,delayed release (DR/EC) 81 mg PO DAILY polyethylene glycol 3350 [Miralax] 17 gram powder in packet 17 g PO DAILY PRN (Reason: Constipation) zoledronic [id number] [Reclast] 5 mg/100 mL piggyback IV ONCE Patient Comments: 1 infusion/ year Referrals: Cirstiane Flores MD [Primary Care Provider] - Stand Alone Forms: Patient Portal/API
[2024-04-20 17:00] LABS: Add Manual Diff / Slide Review NO; Basophils Absolute Auto 100 /uL (0-100); Basophils Percent Auto 0.8 % (0-2); Eosinophils Absolute Auto 700 /uL (0-450); Eosinophils Percent Auto 10.7 % (2-4); Hematocrit 35.2 % (41-53); Lymphocytes Absolute Auto 500 /uL (1100-4500); Lymphocytes Percent Auto 8.3 % (25-40); Mean Corpuscular HGB Conc 34.1 % (30-36); Mean Corpuscular Hemoglobin 31.9 PG (26-34); Mean Corpuscular Volume 93.6 fL (80-100); Monocytes Absolute Auto 700 /uL (0-900); Monocytes Percent Auto 10.8 % (3-14); Neutrophils Absolute Auto 4500 /uL (1500-7000); Neutrophils Percent Auto 69.4 % (50-75); Platelet Count 43 X10^3/uL (150-400); Red Blood Cell Count 3.76 X10^6/uL (4.5-5.9); Red Cell Distribution Width 15.2 % (11.6-14.8); White Blood Cell Count 6.4 X10^3/uL (4.5-11.0)
[2024-04-20 17:10] LABS: Alanine Aminotransferase 17 IU/L (<50); Albumin 3.5 g/dL (3.5-5.0); Albumin Globulin Ratio 1.2 (1.0-2.8); Alkaline Phosphatase 70 U/L (38-126); Aspartate Aminotransferase 33 IU/L (17-59); BUN Creatinine Ratio 26.2 (6-22); Bilirubin Total 1.2 mg/dL (0.2-1.3); Blood Urea Nitrogen 22 mg/dL (9-20); Calcium 8.9 mg/dL (8.4-10.2); Carbon Dioxide 30 mmol/L (22-32); Chloride 99 mmol/L (98-107); Creatine Kinase 58 U/L (55-170); Estimated Glomerular Filt Rate > 60 mL/min (>60); Globulin 2.9 g/dL (1.7-4.1); Glucose 84 mg/dL (80-110); HEMOLYSIS 18 (0-50); Lipase 22 U/L (23-300); Potassium 4.1 mmol/L (3.4-5.1); Sodium 133 mmol/L (137-145); Total Protein 6.4 g/dL (6.3-8.2)
[2024-04-20 17:21] LABS: Troponin I < 0.012 ng/mL (0.01-0.034)
[2024-04-20 17:45] LABS: NT-proBNP (BNP-Adult 18+) 2040 pg/mL (<450)
== END 2024-04-20 18:29 | disposition home or self-care (01) ==
PROVIDERS: Emergency Provider Emergency Medicine; PCP Internal Medicine
DX: S09.90XA Unspecified injury of head, initial encounter (principal); H53.9 Unspecified visual disturbance; R06.02 Shortness of breath; M41.9 Scoliosis, unspecified; W18.30XA Fall on same level, unspecified, initial encounter
CPT/HCPCS: 36415; 70450; 71045; 80053; 82550; 83690; 83880; 84484; 85025; 99283; 99284

== ENCOUNTER → 2024-04-28 14:29 | Outpatient (CLI) | payer OTHER, SELFPAY ==
--- NOTE | 2024-04-28 14:31 | DI.RAD.S_ITS ---
PROCEDURE: XR PELVIS 1-2V INDICATIONS: Sacrococcygeal disorders, not elsewhere classified TECHNIQUE: Two views (s) of the pelvis acquired. COMPARISON: None. FINDINGS: Bones: Screws transfix old solid unified left hip fracture which is anatomically aligned. There no significant osseous abnormalities SI and hip joints: Mild degenerative change seen in both SI joints and hip joints. Moderate L4-5 and L5-S1 degenerative disc disease noted. Soft tissues: No soft tissue swelling, calcification or mass. IMPRESSION: Degeneration. Dictated by: Ahmet Hidalgo M.D. on 04/29/2024 at 6:47 Approved by: Ahmet Hidalgo M.D. on 04/29/2024 at 6:49
== END ==
PROVIDERS: PCP Internal Medicine; Referring Provider Internal Medicine; Visit Provider Internal Medicine
DX: M53.3 Sacrococcygeal disorders, not elsewhere classified (principal); M47.818 Spondylosis without myelopathy or radiculopathy, sacral and sacrococcygeal region; M51.36 Other intervertebral disc degeneration, lumbar region; M51.37 Other intervertebral disc degeneration, lumbosacral region
CPT/HCPCS: 72170

== ENCOUNTER 2024-05-22 12:05 | Emergency (ER) | payer OTHER, SELFPAY ==
[2024-05-22] VITALS (11 sets, daily range): BP systolic 123–167; BP diastolic 58–79; PULSE 51–57; RESP 16–34; TEMP 36.6; O2SAT 94–98; BMI 23.3
--- NOTE | 2024-05-22 12:16 | ED.CHESTPAIN ---
HPI - Chest Pain General Chief Complaint: Chest Pain Stated Complaint: Chest Pain Time Seen by Provider: 05/22/24 12:15 History of Present Illness HPI narrative: 84-year-old male with no known history of coronary artery disease, status post mitral valve replacement surgery Cammie Quiles 2020, had left anterior pleuritic chest discomfort 9 this morning. Noted when he got up to do his leg stretching. He did not do any new particular exercises or change in his regimen, no fall or injury. He has not had any blood clots to legs or lungs. No leg pain or swelling symptoms. No associated nausea or vomiting. No associated diaphoresis. Pain did not seem to radiate to the left or right extremity, legs, neck, jaw, back. No associated shortness of breath. Pain is somewhat worse if he pushes on his left anterior chest. Pain is somewhat worse if he breathes deeply. He denies recent cough or fevers or chills. He arrived by EMS, was given aspirin EN route, no other treatments EN route. Related Data Home Medications Medication Instructions Recorded Confirmed latanoprost 0.005 % eye drops 2 drp ophthalmic (eye) DAILY 01/15/19 12/11/21 calcium citrate 250 mg PO DAILY 10/26/19 12/11/21 aspirin 81 mg tablet,delayed 81 mg PO DAILY 06/06/21 12/11/21 release cholecalciferol (vitamin D3) 25 2,000 unit PO DAILY 06/06/21 12/11/21 mcg (1,000 unit) capsule (Vitamin D3) multivitamin 1 tab PO DAILY 06/06/21 12/11/21 polyethylene glycol 3350 17 gram 17 g PO DAILY PRN Constipation 06/06/21 12/11/21 oral powder packet (Miralax) zoledronic acid 5 mg/100 mL in IV ONCE 06/06/21 06/06/21 mannitol 5 %-water intravenous piggybck (Reclast) carvedilol 12.5 mg tablet (Coreg) 12.5 mg PO BID 12/11/21 12/11/21 losartan 25 mg tablet 25 mg PO DAILY 12/11/21 12/11/21 rosuvastatin 5 mg tablet 5 mg PO DAILY 12/11/21 12/11/21 Previous Rx's Medication Instructions Recorded tamsulosin 0.4 mg capsule See Rx Instructions .Route 06/15/22 .COMPLEX #30 caps Allergies Allergy/AdvReac Type Severity Reaction Status Date / Time lactose [LACTOSE] Allergy Unknown Verified 06/06/21 14:10 latex [LATEX] Allergy Unknown Verified 06/06/21 14:10 lisinopril [LISINOPRIL] Allergy Unknown DIARRHEA Verified 06/06/21 14:10 TAPE Allergy Unknown Uncoded 06/06/21 14:10 Review of Systems Review of Systems Narrative: see HPI Patient History Medical History BPH w urinary obs/LUTS Elevated PSA History of nephrolithiasis Hypertension Kidney stone Lymphoma Nephrolithiasis Nocturia Right nephrolithiasis Valvular heart disease Surgical History H/O hernia repair Hx of vasectomy Previous back surgery Social History Smoking Status: Never smoker Smoking Status: Never smoker Substance Use Type: does not use Exam Narrative Exam Narrative: GENERAL: Well-developed patient, in mild distress. HEAD: Atraumatic. Normocephalic. EYES: Pupils equal round and reactive. Extraocular motions intact. No scleral icterus. No injection or drainage. ENT: Nose without bleeding, purulent drainage. Throat without erythema, tonsillar hypertrophy or exudate. Airway patent. NECK: Trachea midline. Non tender CARDIOVASCULAR: Regular rate and rhythm without murmurs, gallops, or rubs. RESPIRATORY: Clear to auscultation. Breath sounds equal bilaterally. No wheezes, rales, or rhonchi. GASTROINTESTINAL: Abdomen soft, non-tender, nondistended. EXTREMITIES: No edema or joint tenderness. BACK: Nontender without deformity or crepitance. No flank tenderness. NEURO: AOx3. Motor functions grossly nonfocal SKIN: No rash or erythema of visible areas Initial Vital Signs Initial Vital Signs: Vital Signs Temperature 97.8 F 05/22/24 12:16 Pulse Rate 55 L 05/22/24 12:16 Respiratory Rate 16 05/22/24 12:16 Blood Pressure 152/74 H 05/22/24 12:16 Pulse Oximetry 97 05/22/24 12:16 Oxygen Delivery Method Room Air 05/22/24 12:16 Course Orders Ordered: ED Orders 05/22/24 12:18 XR chest 1V Stat EKG-12 Lead Stat 05/22/24 12:22 Complete Blood Count AUTO DIFF Stat Comprehensive Metabolic Panel Stat Lipase Stat Magnesium Stat NT-proBNP (BNP-Adult 18+) Stat PTT Partial Thromboplastin Moy Stat Prothrombin Time INR Stat Troponin & CK Cardiac Panel Stat 05/22/24 14:14 Troponin I Stat Discontinued Medications Albuterol/Ipratropium (Albuterol/Ipratropium 3 Ml Ampul) 3 ml INH NOW ONE Stop: 05/22/24 12:49 Last Admin: 05/22/24 13:06 Dose: 3 ml Documented By: FIONA Vital Signs Vital signs: Vital Signs - 8 hr 05/22/24 13:00 05/22/24 13:00 05/22/24 13:06 Pulse Rate 51 L 54 L Respiratory Rate 25 H 22 Blood Pressure 123/58 L Pulse Oximetry 97 97 Oxygen Delivery Method Room Air 05/22/24 13:51 05/22/24 13:54 05/22/24 13:54 Pulse Rate 56 L 54 L Respiratory Rate 25 H Blood Pressure 167/78 H Pulse Oximetry 94 98 Oxygen Delivery Method 05/22/24 14:00 05/22/24 14:00 05/22/24 14:30 Pulse Rate 53 L Respiratory Rate 34 H Blood Pressure 155/78 H 149/70 H Pulse Oximetry 98 Oxygen Delivery Method 05/22/24 14:30 05/22/24 15:00 05/22/24 15:00 Pulse Rate 53 L 55 L Respiratory Rate 24 29 H Blood Pressure 162/79 H Pulse Oximetry 97 96 Oxygen Delivery Method 05/22/24 15:30 05/22/24 15:30 Pulse Rate 53 L Respiratory Rate 24 Blood Pressure 150/78 H Pulse Oximetry 96 Oxygen Delivery Method Room Air MDM - Chest Pain Lab Data 05/22/24 12:22 05/22/24 12:22 Labs: Lab Results 05/22/24 05/22/24 Range/Units 12:22 14:14 WBC 6.1 (4.5-11.0) X10^3/uL RBC 4.14 L (4.5-5.9) X10^6/uL Hgb 13.2 L (13.5-17.5) g/dL Hct 39.6 L (41-53) % MCV 95.6 (80-100) fL MCH 31.9 (26-34) PG MCHC 33.3 (30-36) % RDW 14.6 (11.6-14.8) % Plt Count 55 L (150-400) X10^3/uL Neut % (Auto) 72.7 (50-75) % Lymph % (Auto) 9.3 L (25-40) % [place] % (Auto) 12.2 (3-14) % Eos % (Auto) 5.0 H (2-4) % Baso % (Auto) 0.8 (0-2) % Neut # (Auto) 4400 (6997-2920) /uL Lymph # (Auto) 600 L (0920-2840) /uL [place] # (Auto) 700 (0-900) /uL Eos # (Auto) 300 (0-450) /uL Baso # (Auto) 0 (0-100) /uL PT 11.5 (9.4-12.5) SECONDS INR 1.0 (0.9-1.3) APTT 37 H (25.1-36.5) SECONDS Sodium 135 L (137-145) mmol/L Potassium 4.3 (3.4-5.1) mmol/L Chloride 101 (98-107) mmol/L Carbon Dioxide 32 (22-32) mmol/L BUN 27 H (9-20) mg/dL Creatinine 1.03 (0.66-1.25) mg/dL Estimated GFR > 60 (>60) mL/min BUN/Creatinine Ratio 26.2 H (6-22) Glucose 86 (80-110) mg/dL Calcium 9.1 (8.4-10.2) mg/dL Magnesium 2.2 (1.6-2.3) mg/dL Total Bilirubin 0.7 (0.2-1.3) mg/dL AST 31 (17-59) IU/L ALT 17 (<50) IU/L Alkaline Phosphatase 88 (38-126) U/L Total Creatine Kinase 52 L (55-170) U/L Troponin I < 0.012 < 0.012 (0.01-0.034) ng/mL NT-Pro-B Natriuret Pep 424 (<450) pg/mL Total Protein 6.6 (6.3-8.2) g/dL Albumin 3.8 (3.5-5.0) g/dL Globulin 2.8 (1.7-4.1) g/dL Albumin/Globulin Ratio 1.4 (1.0-2.8) Lipase 27 (23-300) U/L Imaging Data Chest x-ray: Radiologist's Impression: [address] [address] XRay Report Signed Patient: Payal Rubio MR#: [id number] : 1940 Acct:[id number] Age/Sex: 84 / M Date of Service: 05/22/24 Loc: ED Accession Number: [id number] Procedure: XR chest 1V Ordering Provider: Shade Hampton MD PROCEDURE: XR CHEST 1V INDICATIONS: chest pain TECHNIQUE: One view of the chest was acquired. COMPARISON: [facility], , XR CHEST 1V, 04/20/2024, 16:30. FINDINGS: Surgical changes and devices: Sternal wires and thoracal fixation rods are present. Lungs and pleura: Linear basilar opacities are present. Mediastinum: Mediastinal contours appear normal. Heart size is normal. Bones and chest wall: No suspicious bony lesions. Overlying soft tissues appear unremarkable. IMPRESSION: Basilar opacities likely atelectasis. Dictated by: Aniya Abernathy M.D. on 05/22/2024 at 12:43 Approved by: Aniya Abernathy M.D. on 05/22/2024 at 12:43 ECG Data Attestation: I personally reviewed and interpreted this ECG as follows: Interpretation: 1239, sinus bradycardia with rate of 54, no obvious ST segment elevation or depression changes. ND 206, QRS 88, QTC 419. 1357, sinus bradycardia with rate of 53, no significant ST T-wave morphology changes from 1st study. ND 194, QRS 90, QTC 414. MDM Narrative Medical decision making narrative: 84-year-old male with history of open mitral valve replacement surgery 2020, not believed to have any coronary vessel interventions, now with pleuritic left chest discomfort, worse with direct palpation, not particularly worse with upper extremity movements. DDx consider chest wall discomfort, occult muscular strain, atypical ACS, pulmonary embolus, pneumonia, pneumothorax, bronchospasm, other. Chest x-ray, EKG, lab testing pending. He was given aspirin by EMS en route. Chest x-ray shows bibasilar atelectasis, see radiology report. Trial of SVN DuoNeb. Lab tests pending. Tropning neg Repeat Troponin also neg IV Toradol, symptoms improved. Had chest wall discomfort, possible chest wall etiology of symptoms. Further testing as an outpatient for now Discharge Plan Departure Patient Disposition: Home Clinical Impression: Chest pain Instructions: DI for Chest Pain Activity Restrictions/Additional Instructions: Left anterior chest pain, tenderness on palpation, that reproduces her symptoms. EKG without obvious ischemic changes. No history of known coronary vessel interventions, prior history of mitral valve surgery noted. Serial blood tests did not show evidence for heart attack. Possible chest wall discomfort. Further workup as an outpatient for now. Take Tylenol and or Motrin for chest wall discomfort symptoms. Recheck with your regular doctor Saturday after this , for coordination of further evaluation as an outpatient for now. Return to this/nearest emergency department for any change worsening symptoms or any concerns prior Prescriptions: No Action tamsulosin 0.4 mg capsule See Rx Instructions .ROUTE .COMPLEX Qty: 30 0RF Dose Instruction: Take 1 capsule (0.4 mg) by mouth at bedtime Rx Instructions: Future refills to PCP latanoprost 0.005 % Drops 2 drp ophthalmic (eye) DAILY calcium citrate 250 mg calcium Tablet 250 mg PO DAILY cholecalciferol (vitamin D3) [Vitamin D3] 25 mcg (1,000 unit) capsule 2,000 unit PO DAILY carvedilol [Coreg] 12.5 mg Tablet 12.5 mg PO BID Rx Instructions: must administer with a meal/food losartan 25 mg Tablet 25 mg PO DAILY rosuvastatin 5 mg Tablet 5 mg PO DAILY multivitamin Tablet 1 tab PO DAILY aspirin 81 mg tablet,delayed release (DR/EC) 81 mg PO DAILY polyethylene glycol 3350 [Miralax] 17 gram powder in packet 17 g PO DAILY PRN (Reason: Constipation) zoledronic [id number] [Reclast] 5 mg/100 mL piggyback IV ONCE Patient Comments: 1 infusion/ year Referrals: Cristiane Flores MD [Primary Care Provider] - Stand Alone Forms: Patient Portal/API
--- NOTE | 2024-05-22 12:18 | EKG_ITS ---
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
[2024-05-22 12:37] LABS: Add Manual Diff / Slide Review NO; Basophils Absolute Auto 0 /uL (0-100); Basophils Percent Auto 0.8 % (0-2); Eosinophils Absolute Auto 300 /uL (0-450); Hematocrit 39.6 % (41-53); Hemoglobin 13.2 g/dL (13.5-17.5); Lymphocytes Absolute Auto 600 /uL (1100-4500); Lymphocytes Percent Auto 9.3 % (25-40); Mean Corpuscular HGB Conc 33.3 % (30-36); Mean Corpuscular Hemoglobin 31.9 PG (26-34); Mean Corpuscular Volume 95.6 fL (80-100); Monocytes Absolute Auto 700 /uL (0-900); Monocytes Percent Auto 12.2 % (3-14); Neutrophils Absolute Auto 4400 /uL (1500-7000); Neutrophils Percent Auto 72.7 % (50-75); Platelet Count 55 X10^3/uL (150-400); Red Blood Cell Count 4.14 X10^6/uL (4.5-5.9); Red Cell Distribution Width 14.6 % (11.6-14.8); White Blood Cell Count 6.1 X10^3/uL (4.5-11.0)
[2024-05-22 12:39] LABS: Prothrombin Time 11.5 SECONDS (9.4-12.5)
[2024-05-22 12:42] LABS: PTT Partial Thromboplastin Tim 37 SECONDS (25.1-36.5)
[2024-05-22 12:45] LABS: Alanine Aminotransferase 17 IU/L (<50); Albumin 3.8 g/dL (3.5-5.0); Albumin Globulin Ratio 1.4 (1.0-2.8); Alkaline Phosphatase 88 U/L (38-126); Aspartate Aminotransferase 31 IU/L (17-59); BUN Creatinine Ratio 26.2 (6-22); Bilirubin Total 0.7 mg/dL (0.2-1.3); Blood Urea Nitrogen 27 mg/dL (9-20); Calcium 9.1 mg/dL (8.4-10.2); Carbon Dioxide 32 mmol/L (22-32); Chloride 101 mmol/L (98-107); Creatine Kinase 52 U/L (55-170); Estimated Glomerular Filt Rate > 60 mL/min (>60); Globulin 2.8 g/dL (1.7-4.1); Glucose 86 mg/dL (80-110); HEMOLYSIS < 15 (0-50); Lipase 27 U/L (23-300); Magnesium 2.2 mg/dL (1.6-2.3); Potassium 4.3 mmol/L (3.4-5.1); Sodium 135 mmol/L (137-145); Total Protein 6.6 g/dL (6.3-8.2)
[2024-05-22 12:56] LABS: NT-proBNP (BNP-Adult 18+) 424 pg/mL (<450); Troponin I < 0.012 ng/mL (0.01-0.034)
[2024-05-22] MEDS: ALBUTEROL/IPRATROPIUM 3 ML AMPUL INH (13:06)
--- NOTE | 2024-05-22 13:38 | RT ---
pt braydon nazario well, on room air with no distress noted.
--- NOTE | 2024-05-22 13:57 | EKG_ITS ---
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
[2024-05-22 14:43] LABS: Troponin I < 0.012 ng/mL (0.01-0.034)
== END 2024-05-22 16:11 | disposition home or self-care (01) ==
PROVIDERS: Emergency Provider Emergency Medicine; PCP Internal Medicine; Referring Provider Emergency Medicine
DX: R07.9 Chest pain, unspecified (principal); R00.1 Bradycardia, unspecified; Z95.2 Presence of prosthetic heart valve
CPT/HCPCS: 36415; 71045; 80053; 82550; 83690; 83735; 83880; 84484; 85025; 85610; 85730; 93005; 93010; 94640; 99284

== ENCOUNTER → 2024-07-13 14:15 | Outpatient (CLI) | payer OTHER, SELFPAY ==
--- NOTE | 2024-07-13 | DI.RAD.S_ITS ---
PROCEDURE: XR DEXA AXIAL SKELETON INDICATIONS: OSTEOPOROSIS SCRN FOR PROLIA COMPARISON: [facility], CR, XR PELVIS 1-2V, 04/28/2024, 14:35. [facility], CR, XR DEXA AXIAL SKELETON, 07/09/2022, 14:34. [facility], CR, XR DEXA AXIAL SKELETON, 08/21/2019, 14:31. FINDINGS: Right Hip: Bone mineral density is 0.537 g/cm2, T score -3.3. Since the most recent prior study, there has been a statistically significant increase in bone mineral density by 6.7 %. Right Femoral Neck: Bone mineral density 0.446 g/cm2, T score -3.6. Left Forearm: Bone mineral density is 0.632 g/cm2, T score -1.0. Fracture Risk Calculation (when applicable): FRAX score not reported due to T-score less than -2.5. (T score greater or equal to -1.0 to: NORMAL) (T score from -1.1 to -2.4: OSTEOPENIA) (T score less than or equal to -2.5: OSTEOPOROSIS) IMPRESSION: 1. By WHO criteria, patient has osteoporosis. 2. Interval statistically significant increase in bone mineral density at the right hip. Follow-up guidelines as follows: Osteoporosis: Consider a repeat DEXA and Vertebral Fracture Assessment (VFA) exam in 2 years or sooner if medically necessary, to reassess this patient's status. Osteopenia: Consider a repeat DEXA in 2-3 years to reassess this patient's status, or if there is a new clinical indication. Normal: Consider a repeat DEXA in 5 years or sooner, or if there is a new clinical indication. All treatment decisions require clinical judgment and consideration of individual patient factors, including patient preferences, comorbidities, previous drug use, risk factors not captured in the FRAX model (e.g., frailty, falls, vitamin D deficiency, increased bone turnover, interval significant decline in bone density ) and possible under- or over-estimation of fracture risk by FRAX. In addition, the NOF Guide recommends that FDA-approved medical therapies be considered in postmenopausal women and men age >= 50 years with a: * Hip or vertebral (clinical or morphometric) fracture * T-score of <=-2.5 at the spine or hip * Ten-year fracture probability by FRAX of >= 3% for hip fracture or >=20% for major osteoporotic fracture. People with diagnosed cases of osteoporosis or at high risk for fracture should have regular bone mineral density tests. For patients eligible for Medicare, routine testing is allowed once every 2 years. The testing frequency can be increased to one year for patients who have rapidly progressing disease, those who are receiving or discontinuing medical therapy to restore bone mass, or have additional risk factors. Approved by: Sravan Purdy M.D. on 07/13/2024 at 16:15
== END ==
PROVIDERS: PCP Internal Medicine; Referring Provider Internal Medicine; Visit Provider Internal Medicine
DX: M81.0 Age-related osteoporosis without current pathological fracture (principal)
CPT/HCPCS: 77080; 77081

== ENCOUNTER → 2024-12-13 12:29 | Outpatient (CLI) | payer OTHER, SELFPAY ==
--- NOTE | 2024-12-13 | DI.ECHO.S_ITS ---
[facility] : : [address] : : [place] : : [id number] : : Phone: [phone] Echocardiogram Report + + :Name: DAFNE VASQUEZ Study Date: 12/13/2024 Height: 67 in : :Hospital ReadingLocation: Weight: 140 lb : : Gender: Male BSA: 1.7 m2 : :: 1940 Age: 84 yrs BP: 145/77 mmHg: :Reason For Study: DYSPNEA : :Ordering Physician: JEREMIAH, : :DARLENE Performed By: Chloe Berrios : :Referring: DARLENE DANIELS : + + Interpretation Summary Sinus bradycardia with heart rate 52-53 bpm. Normal LV size and wall thickness. Normal wall motion and LV systolic function. Ejection fraction is 55-60%. Mild left atrial enlargement; otherwise normal chamber sizes.. By history patient has a 33 mm bioprosthetic mitral valve replaced in January 2021. It is functioning normally. Aortic valve leaflets are moderately thickened and calcified but demonstrate normal excursion. Trace tricuspid regurgitation. Compared to prior echocardiogram obtained on October 31, 2023 at [facility], no significant changes have occurred. Procedure: A two-dimensional transthoracic echocardiogram with color flow and Doppler was performed. The study quality was technically adequate. Comparison is made with the echocardiogram of 02/20/2017. The patient was in sinus bradycardia with heart rates between 51-54 bpm during the exam. Left Ventricle: The left ventricle is normal in size and wall thickness. The ejection fraction is estimated to be 55-60%. Diastolic function could not be accurately assessed due to confounding valvular disease. Right Ventricle: The right ventricle is normal in size and function. Atria: The left atrium is mildly dilated. This is unchanged compared to the previous study. There is no Doppler evidence for an interatrial shunt. Mitral Valve: There is a bioprosthetic mitral valve. The mitral valve mean gradient is 1.8 mmHg. There is mild mitral regurgitation. Aortic Valve: The aortic valve is heavily calcified. The peak aortic velocity is 1.9 m/sec. The aortic valve mean gradient is 7 mmHg. The calculated aortic valve area is 1.6 cm2. There is trace aortic regurgitation. Tricuspid Valve: The tricuspid valve leaflets are thin and pliable. There is mild tricuspid regurgitation. The right ventricular systolic pressure is estimated to be at least 28 mmHg based on an estimated right atrial pressure of 3 mm Hg. Pulmonic Valve: The pulmonic valve is not well visualized. There is no pulmonic valvular regurgitation. Great Vessels: The aortic root is normal size. The ascending aorta could not be visualized. The IVC is of normal diameter and collapses greater than 50% with a sniff. This suggests a low right atrial pressure of 3 mm Hg. Pericardium/ Pleura There is no pericardial effusion. There is no pleural effusion. MMode/2D Measurements & Calculations LVIDd: 4.0 cm LVOT diam: 2.0 cm LVIDs: 3.0 cm Ao root diam: 3.4 cm FS: 25.4 % IVSd: 0.92 cm LVPWd: 0.94 cm LV ojeda. diameter/BSA (cm/m^2): 2.3 LV sys. diameter/BSA (cm/m^2): 1.7 LA A2 area: 20.0 cm2 RA long axis: 5.1 cm LA A4 area: 20.1 cm2 RA area: 14.5 cm2 LA length (vol): 5.1 cm RA vol: 34.9 ml LA vol: 66.6 ml RA : 20.1 ml/m2 LA vol index: 38.3 ml/m2 IVC diam: 1.3 cm RVD1 (basal): 3.8 cm RVD2 (mid): 3.3 cm TAPSE: 2.1 cm Doppler Measurements & Calculations Ao V2 max: 192.8 cm/sec LVOT Max Shane: 99.4 cm/sec Ao V2 mean: 122.4 cm/sec LV V1 max P.0 mmHg Ao max P.4 mmHg LV V1 VTI: 24.3 cm Ao mean P.7 mmHg GRACIA(I,D): 1.8 cm2 Ao V2 VTI: 42.7 cm GRACIA(V,D): 1.6 cm2 sev ratio: 0.57 GRACIA indexed to BSA (cm^2/m^2): 1.0 MV E max shane: 84.3 cm/sec TR max shane: 248.8 cm/sec MV A max shane: 112.3 cm/sec TR max P.8 mmHg MV E/A: 0.75 PA V2 max: 81.4 cm/sec Med Peak E' Shane: 6.0 cm/sec PA V2 mean: 55.1 cm/sec E/E' med: 14.0 PA mean P.4 mmHg Lat Peak E' Shane: 7.9 cm/sec PA pr(Accel): 37.9 mmHg E/E' lat: 10.6 E/e' average: 12.3 MV dec time: 0.34 sec MVA(VTI): 1.8 cm2 MV V2 mean: 61.9 cm/sec SV(LVOT): 74.8 ml MV mean P.8 mmHg MV V2 VTI: 42.6 cm Electronically signed by: Sagrario Nielsen M.D. on Reading Physician:12/18/2024 02:49 PM
== END ==
PROVIDERS: PCP Internal Medicine; Referring Provider Internal Medicine; Visit Provider Internal Medicine
DX: I08.1 Rheumatic disorders of both mitral and tricuspid valves (principal); R06.09 Other forms of dyspnea; Z95.2 Presence of prosthetic heart valve
CPT/HCPCS: 93306